=== PATIENT | female | born 1930 ===

== ENCOUNTER 2019-11-11 09:06 | Inpatient (IN) | payer MEDICARE, OTHER ==
--- NOTE | 2019-11-11 09:23 | CT ---
CT Brain WO Con History: Right-sided facial droop Comparison: None. Findings: No acute hemorrhage. No loss of pagan-white matter differentiation. The insular ribbons are maintained. The calvarium is intact. Paranasal sinuses and mastoids are clear. No midline shift or mass effect. Ventricular size and extra-axial CSF spaces are normal for age. Impression: No acute hemorrhage or significant territorial infarction.
[2019-11-11 09:37] LABS: #Eosinphils 0.2 thou/uL (0.0-0.7); #Lymphocytes 1.5 thou/uL (1.20-3.40); #Monocytes 0.8 thou/uL (0.11-0.59); %Basophils 0.1 % (0.0-1.0); %Eosinophils 2.2 % (0.0-10.0); %Lymphocytes 15.5 % (21.0-51.0); %Monocytes 8.5 % (0.0-10.0); %Neutrophils 73.7 % (42.0-75.0); Mean Corpuscular HGB CONC 33.5 g/dL (32.0-36.0); Mean Corpuscular Volume 92.7 fL (78.0-98.0); Mean Platelet Volume 7.6 fL (7.4-10.4); Platelet Count 213 thou/uL (130-400); RBC Distribution Width 11.6 % (11.5-14.5); White Blood Cell (WBC) Count 9.5 thou/uL (4.8-10.8)
[2019-11-11 09:48] LABS: INR-International Normal Ratio 1.1; PTT 26.9 sec (22.9-36.1); Prothrombin Time 13.7 sec (12.0-14.7)
--- NOTE | 2019-11-11 09:53 | CT ---
EXAM: CT ANGIOGRAM OF THE HEAD AND NECK INDICATION: Stroke COMPARISON: None TECHNIQUE: CT angiogram of the head and neck are performed in the axial plane. Three-dimensional refo rmatted images are submitted for interpretation. FINDINGS: CTA OF THE HEAD WITH AND WITHOUT CONTRAST: POSTCONTRAST CT OF BRAIN: Pathologic enhancement: No pathologic enhancement the brain. Postcontrast soft tissue neck CT: Aerodigestive tract:Aerodigestive tract is patent. No mucosal abnormality. Sinuses: Adequate aeration. Orbits: Bilateral ocular lens implants are appropriately located. Both globes are intact. Retrobulbar fat is preserved. Symmetric attenuation of the optic nerves and ocular rectus muscle Salivary glands:Appropriate attenuation. Thyroid gland: Appropriate attenuation Lymph nodes: No evidence of lymphadenopathy by size criteria. Paraspinal muscles: Symmetric attenuation of the sternocleidomastoid muscles. Appropriate attenuation of the paraspinal muscles. Cervical spine:Vertebral body height is maintained. No fracture. No significant central canal stenosi s or significant neural foraminal narrowing. Limited evaluation by technique. Upper mediastinum and lung apices: Multiple groundglass and solid nodules in the visualized lung pare nchyma. [employer] Management Aide nodules measure 0.3 to 0.5 cm. CTA OF THE NECK WITH CONTRAST: Aorta: Atherosclerosis. No aneurysm or dissection. Right carotid artery: Appropriate enhancement and luminal diameter of the origin of the right carotid artery, innominate artery, common carotid artery, carotid bifurcation and internal carotid artery. No evidence of significant stenosis based upon NASCET criteria Left carotid: Appropriate enhancement and luminal diameter of the origin of the left carotid artery, common carotid artery, carotid bifurcation and internal carotid artery. No evidence of significant stenosis based upon NASCET criteria. Subclavian arteries:Symmetric attenuation and enhancement Vertebral arteries:Dominant left vertebral artery. No significant stenosis in left vertebral artery. There is calcified plaque in the proximal right vertebral artery. Remainder of the right vertebral artery appears to be patent. CTA OF THE BRAIN: Intracranial internal carotid arteries:Atherosclerosis of both cavernous segments. No significant lum inal narrowing Anterior circulation: Symmetric enhancement and luminal diameter of the A1 segments, proximal A2 segm ents, M1 segments and proximal MCA branches. Intracranial vertebral arteries: Appropriate enhancement and luminal diameter. Limited evaluation of the left PICA artery origin. Posterior circulation: Appropriate enhancement and luminal diameter of the basilar artery and bilater al P1 segments. IMPRESSION: No hemodynamically significant stenosis, occlusion or aneurysmal formation. Results of study discussed with Dr. Dejesus 11/11/2019 9:51 AM Code CR Transcribed Date/Time: 11/11/2019 10:05 AM
[2019-11-11 09:57] LABS: ALT (SGPT) 12 U/L (8-55); AST (SGOT) 17 U/L (5-34); Albumin 3.5 g/dL (3.4-4.8); Alkaline Phosphatase 94 U/L (40-110); Anion Gap 10 mmol/L (10-20); BUN (Urea Nitrogen) 11 mg/dL (9.8-20.1); Bilirubin, Total 1.1 mg/dL (0.2-1.2); CK (CPK) 49 U/L (29-168); Calc. Creatinine Clearance 0 mL/min (70-130); Calcium 8.3 mg/dL (7.8-10.44); Carbon Dioxide 28 mmol/L (23-31); Chloride 99 mmol/L (98-107); Estimated GFR-MDRD 51; Globulin 2.6 g/dL (2.4-3.5); Glucose 376 mg/dL (83-110); Magnesium 1.7 mg/dL (1.6-2.6); Potassium 3.8 mmol/L (3.5-5.1); Protein, Total 6.1 g/dL (6.0-8.3); Sodium 133 mmol/L (136-145)
--- NOTE | 2019-11-11 10:05 | RAD ---
Exam: Chest one view HISTORY:Altered mental status Comparison: 10/27/2010 FINDINGS: Cardiac silhouette:Cardiomegaly. Aorta: Unremarkable Pulmonary vessels: Normal Costophrenic angles: Clear LUNGS: Chronic lung parenchymal changes. Superimposed interstitial edema or infiltrate cannot be excl uded. Pneumothorax: None Osseous abnormalities: None IMPRESSION: 1. Cardiomegaly 2. Superimposed edema or infiltrate is suspected on chronic lung parenchymal changes.
[2019-11-11] MEDS ORDERED: hydrALAZINE 20 MG/ML VIAL ONE (10:18)
[2019-11-11 10:21] LABS: CKMB 2.3 ng/mL (0-6.6)
[2019-11-11] MEDS ORDERED: Iopamidol-370 76% 500 ML 1 ML ONE (11:33)
[2019-11-11 11:37] LABS: Bilirubin Negative (Negative); Blood, Urine Negative (Negative); Clarity Clear (Clear); Glucose, Urine (Dipstick) 300 mg/dL (Negative); Ketone, Urine Negative (Negative); Leukocyte Negative Leu/uL (Negative); Nitrite Negative (Negative); Protein, Urine (Dipstick) Negative (Neg-Trace); Specific Gravity, Urine 1.022 (1.002-1.036); Urobilinogen Normal mg/dL (Less than 2)
[2019-11-11] MEDS ORDERED: Calcium Carbonate 500 MG ChewTAB PO PRN (12:56)
[2019-11-11] MEDS ORDERED: Acetaminophen 650 MG Suppository PR PRN (12:56)
[2019-11-11] MEDS ORDERED: Bisacodyl 10 MG SUPP PR PRN (12:56)
[2019-11-11] MEDS ORDERED: Guaifenesin DM 100-10/5 ML UDCUP PO PRN (12:56)
[2019-11-11] MEDS ORDERED: Ondansetron PF 4 MG/2 ML Vial IVP PRN (12:56)
[2019-11-11] MEDS ORDERED: Senokot S 8.6-50 MG TAB PO PRN (12:56)
[2019-11-11] MEDS ORDERED: hydrALAZINE 20 MG/ML VIAL SLOW IVP PRN (12:56)
[2019-11-11] MEDS ORDERED: Acetaminophen 325 MG TAB PO PRN (12:56)
[2019-11-11 13:09] LABS: Troponin I 0.041 ng/mL (< 0.028)
--- NOTE | 2019-11-11 14:53 | MRI ---
MRI BRAIN WITHOUT CONTRAST: HISTORY: Level 1 stroke, right-sided facial droop, right-sided arm and leg weakness CORRELATION: CT scan from same date FINDINGS: No restricted diffusion is seen. There are changes of cortical atrophy. There are multiple foci of T2 prolongation in the periventricular white matter, consistent with chronic small vessel ischemic disease. The ventricular size is appropriate and the basilar cisterns are patent. No evidence of acute infarct, hemorrhage, midline shift or abnormal extra-axial fluid collections is seen. The visualized paranasal sinuses and mastoid air cells are well-aerated. IMPRESSION: No evidence of acute intracranial process. Discussed over the telephone with ER physician Dr. Dejesus at 2:49 PM
[2019-11-11] MEDS ORDERED: Aspirin Chewable 81 MG TAB ONE ×2 (19:55→19:58)
[2019-11-11 20:32] VITALS: BMI 19.6
[2019-11-11] MEDS ORDERED: Dextrose 5% in Water 1,000 ML IV PRN (21:20)
[2019-11-11] MEDS ORDERED: Dextrose 50% Abboject 50 ML SYRINGE SLOW IVP PRN (21:20)
[2019-11-11] MEDS ORDERED: HumaLOG 300 UNITS/3 ML VIAL SC PRN (21:20)
[2019-11-11] MEDS: Atorvastatin Calcium 40 MG TAB PO SCH (22:19)
[2019-11-12 04:59] LABS: #Basophils 0.1 thou/uL (0.0-0.2); #Eosinphils 0.3 thou/uL (0.0-0.7); #Lymphocytes 1.9 thou/uL (1.20-3.40); #Monocytes 0.9 thou/uL (0.11-0.59); #Neutrophils 8.3 thou/uL (1.40-6.50); %Basophils 0.7 % (0.0-1.0); %Eosinophils 2.5 % (0.0-10.0); %Lymphocytes 16.3 % (21.0-51.0); %Monocytes 8.2 % (0.0-10.0); %Neutrophils 72.4 % (42.0-75.0); Hemoglobin 12.5 g/dL (12.0-16.0); Mean Corpuscular HGB CONC 33.1 g/dL (32.0-36.0); Mean Corpuscular Hemoglobin 30.3 pg (27.0-31.0); Mean Corpuscular Volume 91.4 fL (78.0-98.0); Mean Platelet Volume 7.7 fL (7.4-10.4); Platelet Count 222 thou/uL (130-400); RBC Distribution Width 11.6 % (11.5-14.5); Red Blood Cell (RBC) Count 4.12 mill/uL (4.20-5.40); White Blood Cell (WBC) Count 11.5 thou/uL (4.8-10.8)
[2019-11-12 05:19] LABS: Anion Gap 11 mmol/L (10-20); BUN (Urea Nitrogen) 9 mg/dL (9.8-20.1); Calc. Creatinine Clearance 45 mL/min (70-130); Calcium 8.8 mg/dL (7.8-10.44); Carbon Dioxide 27 mmol/L (23-31); Cardiac Risk 3.6 (Less than 4.5); Chloride 101 mmol/L (98-107); Cholesterol 121 mg/dl (< 200 Desired); Estimated GFR-MDRD 72; Glucose 182 mg/dL (83-110); HDL Cholesterol 34 mg/dL (>60 Neg Risk); LDL Cholesterol, Calculated 65 mg/dL; Potassium 4.3 mmol/L (3.5-5.1); Sodium 135 mmol/L (136-145); Triglycerides 111 mg/dL (Less than 150)
[2019-11-12] MEDS: HumaLOG 300 UNITS/3 ML VIAL SC PRN ×3 (06:30→18:27)
[2019-11-12] MEDS ORDERED: Enoxaparin Sodium 40 MG/0.4 ML SYRINGE SC SCH ×2 (09:00→14:45)
[2019-11-12] MEDS: Aspirin 325 mg Enteric Coated Tablet PO SCH (09:57)
[2019-11-12] MEDS ORDERED: Metoprolol Tartrate 50 MG TAB PO SCH (12:45)
--- NOTE | 2019-11-12 12:58 | HP ---
REASON FOR ADMISSION: Right hemiparesis. HISTORY OF PRESENTING ILLNESS: Please note majority of this history is obtained by talking to the patient's daughter, who is at bedside and the ER physician, Dr. Dejesus as the patient does not recollect exactly what happened. Per family, the patient's son went to check on her between 7:00 a.m. and 9:00 a.m. she would not wake up and was groggy. The son manages to sit her up and stand and later finds out that she is weak on the right upper extremity and lower extremity. She was not grasping on objects. He tried to feed her, but she was confused. Finally, EMS was summoned and the patient was brought to emergency room. On arrival, she has had a CT brain and CT angio of brain done, which does not reveal any acute abnormalities. Currently she is awake, but is not fully oriented. She does respond to questions. She easily gets agitated. PAST MEDICAL AND SURGICAL HISTORY: Hypertension, diabetes mellitus type 2, dyslipidemia, and open cholecystectomy. CURRENT MEDICATIONS: The patient or the daughter does not recall medications. They will try to bring her home medications soon. PERSONAL HISTORY: Does not abuse alcohol or drugs. No history of smoking. ALLERGIES: NO KNOWN DRUG ALLERGIES. FAMILY HISTORY: Mother when she was 9 years old. Father at the age of 92 from natural causes as far as she knows. CODE STATUS: Full. POWER OF CLIPPER MACHINE: Two children. REVIEW OF SYSTEMS: CONSTITUTIONAL: Negative for weight loss or gain, ability to conduct usual activities. SKIN: Negative for rash, itching. EYES: Negative for double vision, pain. ENT/MOUTH: Negative for nose bleeding, neck stiffness, pain, tenderness. CARDIOVASCULAR: Negative for palpitations, dyspnea on exertion, orthopnea. RESPIRATORY: Negative for shortness of breath, wheezing, cough, hemoptysis, fever or night sweats. GASTROINTESTINAL: Negative for poor appetite, abdominal pain, heartburn, nausea , vomiting, constipation, or diarrhea. GENITOURINARY: Negative for urgency, frequency, dysuria, nocturia. MUSCULOSKELETAL: Negative for pain, swelling. NEUROLOGIC/PSYCHIATRIC: Negative for anxiety, depression. ALLERGY/IMMUNOLOGIC: Negative for skin rash, bleeding tendency. PHYSICAL EXAMINATION: GENERAL: The patient is an 89-year-old female, who is currently not in any acute distress. VITAL SIGNS: Blood pressure 146/74, pulse rate 80 per minute, respiratory rate 20 per minute, temperature 98 degrees Fahrenheit, and saturating 98% on room air. NECK: Supple. No elevated JVD. HEENT: Eyes; extraocular muscles are intact. Pupils are reacting to light. Oral cavity, mucous membranes are dry. No exudates or congestion. CARDIOVASCULAR: S1 and S2 heard. Loud S2. No murmur. RESPIRATORY SYSTEM: Air entry, 1+ bilateral. No rales or rhonchi. ABDOMEN: Soft. Bowel sounds are heard. No tenderness, rigidity, or guarding. EXTREMITIES: No peripheral edema or calf tenderness. VASCULAR SYSTEM: Peripheral pulses 1+ bilateral. No ischemic ulcerations or gangrene. CENTRAL NERVOUS SYSTEM: Cranial nerves are grossly intact. The patient is awake, but not oriented. She knows her name and she knows her daughter, who is by her bedside, but does not recollect what happened this morning. Motor system strength is 2/5 to 3/5 in right upper and lower extremity. Babinski is equivocal. Reflexes are 2+ on the left upper and lower extremity. Gait was not tested. Cerebellar signs could not be elicited as the patient is not cooperative. PSYCHIATRIC SYSTEM: No obvious hallucinations or delusions. LABORATORY DATA: White count of 9, hemoglobin and H 13 and 38, platelet count 21, MCV is 92 with 73% neutrophils. PT/INR, PTT within normal limits. BUN 11, creatinine 1.0. Serum bicarb is 28. Serum sugar 376. LFTs are within normal limits. Troponin I 0.03. CK-MB 2.3. Albumin is 3.5. UA shows no evidence of UTI. COVID-19 test has been ordered and is pending. CT brain shows no acute hemorrhage or significant territorial infarct. CT angio of head and neck done shows no hemodynamically significant stenosis or occlusion or aneurysm formation. CLINICAL IMPRESSION AND PLAN: The patient will be admitted to Stroke Unit for acute CVA with right hemiparesis. She has uncontrolled diabetes. The patient's initial workup including CT brain and CT angio brain does not reveal any acute infarct or significant stenosis or thrombus. The family says she has not been exposed to COVID. We will await the results of the COVID-[address] her on full-dose aspirin, Lipitor, and Humalog coverage for now. We will await home medication list to be updated. Please note, I have been informed that the patient will be transferred to [facility] due to her [facility] Medicaid insurance by emergency room here and the transfer center. I have given complete updates to Dr. Kisha Bunch, hospitalist at [facility]. Patient has been accepted and will be shortly transferred from the emergency room. We will follow stroke evidence based protocol if she remains in the hospital. Job ID: [id number] MTDD
[2019-11-12] MEDS ORDERED: Hydrochlorothiazide 25 MG TAB PO SCH (13:00)
[2019-11-12] MEDS ORDERED: Amlodipine 10 MG TAB PO SCH (13:00)
[2019-11-12] MEDS ORDERED: Losartan 25 MG TAB PO SCH (13:00)
[2019-11-12] MEDS ORDERED: Diltiazem 125 MG in Sodium Chloride 0.9% 100 ML IVPB SCH (13:30)
--- NOTE | 2019-11-12 13:37 | PDOC.HOSPP ---
- Subjective Encounter Date: 11/12/19 Subjective: Patient reports she feels fine. She feels like all of her symptoms have completely resolved and she is back to her normal baseline. - Objective Vital Signs & Weight: Vital Signs (12 hours) Temp Pulse Pulse Pulse Resp BP BP 11/12/19 12:59 153 H 11/12/19 11:43 98.4 F 70 16 11/12/19 10:16 94 116 H 183/83 H 210/91 H 11/12/19 08:00 97.8 F 99 14 11/12/19 04:00 98.0 F 85 20 BP Pulse Ox 11/12/19 12:59 11/12/19 11:43 180/78 H 95 11/12/19 10:16 11/12/19 08:00 204/79 H 99 11/12/19 04:00 218/90 H 94 L Weight Weight 121 lb 11.2 oz I&O: 11/11/19 11/12/19 11/13/19 06:59 06:59 06:59 Intake Total 120 Balance 120 Result Diagrams: 11/12/19 04:40 11/12/19 04:40 Additional Labs: Accuchecks 11/12/19 11/12/19 11/11/19 11:42 05:36 21:03 POC Glucose 229 H 186 H 326 H Hospitalist ROS - Medication Medications: Active Medications Generic Name Dose Route Start Last Admin Trade Name Yessy PRN Reason Stop Dose Admin Amlodipine Besylate 10 mg 11/12/19 13:00 11/12/19 12:59 Norvasc PO 11/12/19 15:00 10 mg NOW SHRUTI Administration Aspirin 325 mg 11/12/19 09:00 11/12/19 09:57 Ecotrin PO 325 mg DAILY SHRUTI Administration Atorvastatin Calcium 40 mg 11/11/19 21:00 11/11/19 22:19 Lipitor PO 40 mg HS SHRUTI Administration Enoxaparin Sodium 40 mg 11/12/19 09:00 11/12/19 09:57 Lovenox SC 40 mg 0900 SHRUTI Administration Glipizide 10 mg 11/12/19 13:00 11/12/19 12:57 Glucotrol Xl PO 11/12/19 15:00 10 mg NOW SHRUTI Administration Hydrochlorothiazide 12.5 mg 11/12/19 13:00 11/12/19 12:57 Hydrochlorothiazide PO 11/12/19 15:00 12.5 mg NOW SHRUTI Administration Insulin Human Lispro 0 units 11/11/19 21:20 11/11/19 23:23 Humalog SC 4 unit .BEDTIME SLIDING SC PRN Administration Bedtime Correctional Scale Insulin Human Lispro 0 units 11/11/19 21:20 11/12/19 06:30 Humalog SC 2 unit .MILD SLIDING SCALE PRN Administration Mild Correctional Scale Losartan Potassium 100 mg 11/12/19 13:00 11/12/19 12:59 Cozaar PO 11/12/19 15:00 100 mg NOW SHRUTI Administration Metoprolol Tartrate 50 mg 11/12/19 12:45 11/12/19 12:59 Lopressor PO 11/12/19 14:45 50 mg NOW SHRUTI Administration Sodium Chloride 10 ml 11/11/19 12:56 11/12/19 09:59 Flush - Normal Saline IVF 10 ml PRN PRN Administration Saline Flush - Exam General Appearance: NAD, awake alert Heart: irregular (Tachycardic) Respiratory: CTAB, no wheezes, no rales, no ronchi, normal chest expansion, no tachypnea, normal percussion Gastrointestinal: soft, non-tender, non-distended, normal bowel sounds, no palpable masses, no hepatomegaly, no splenomegaly, no bruit Extremities: no cyanosis, no clubbing, no edema Neurological: no new deficit Musculoskeletal: normal tone, normal strength, no muscle wasting Psychiatric: normal affect, normal behavior, A&O x 3 Hosp A/P (1) Atrial fibrillation with rapid ventricular response Code(s): I48.91 - UNSPECIFIED ATRIAL FIBRILLATION Status: Acute (2) TIA (transient ischemic attack) Code(s): G45.9 - TRANSIENT CEREBRAL ISCHEMIC ATTACK, UNSPECIFIED Status: Acute (3) Hypertension Code(s): I10 - ESSENTIAL (PRIMARY) HYPERTENSION Status: Acute (4) Diabetes mellitus Code(s): E11.9 - TYPE 2 DIABETES MELLITUS WITHOUT COMPLICATIONS Status: Acute (5) Hyperlipidemia Code(s): E78.5 - HYPERLIPIDEMIA, UNSPECIFIED Status: Acute - Plan Atrial fibrillation with rapid ventricular response: The expectation was the patient was to be transferred to [facility] last evening. However that did not happen apparently because of the bed situation. Patient did not have her usual morning medications ordered timely this morning. She has subsequently developed some high blood pressure and now developed atrial fibrillation with rapid ventricular response. Unclear if these are related. Started the patient on diltiazem drip without a load. She is just received her usual daily medications including metoprolol. She appears quite stable and asymptomatic otherwise. Patient received prophylactic dose of Lovenox this morning at 40 mg. At this point I will give her an additional 40 to cover for the atrial fibrillation. Obtain echocardiogram. Cardiology consult. Patient denies ever having had A. fib previously. TIA: Unclear at this point if the patient might of had some symptomatic atrial fibrillation at home or if she has had this atrial fibrillation at any time in the past potentially increasing the risk of TIA or stroke. Her MRI was negative for acute stroke. Currently she is entirely asymptomatic. Her blood pressure was and is fairly high. It is possible she had some hypertensive encephalopathy. Hypertension: Resumed her usual daily home medications. Will continue to monitor closely and provide PRN's if needed. Diabetes mellitus: Reasonably well controlled. Resumed home medications. Continue Accu-Cheks. Hyperlipidemia: Continue statin.
--- NOTE | 2019-11-12 14:29 | CON ---
DATE OF CONSULTATION: 11/12/2019 REASON FOR CONSULTATION: Atrial fibrillation. HISTORY OF PRESENT ILLNESS: Ms. Madden is a very pleasant 89-year-old female, who comes to the hospital for stroke like symptoms. She had slurred speech and had reduced strength in the right upper and lower extremity. She came in, had a full evaluation with CAT scans and MRI of the brain and she had no acute abnormality. Her symptoms resolved within less than 24 hours and is back to normal. This morning, her blood pressure was very high in the 200s. She was given all her blood pressure medication that she normally takes and her heart went into atrial fibrillation with rapid ventricular response. Heart rate in the 150s, so Cardiology has been consulted for this. PAST MEDICAL HISTORY: 1. Hypertension. 2. Type 2 diabetes. 3. Hyperlipidemia. PAST SURGICAL HISTORY: Cholecystectomy. OUTPATIENT MEDICATIONS: 1. Olmesartan 40 mg a day. 2. Felodipine 10 mg a day. 3. Hydrochlorothiazide 12.5 mg a day. 4. Gabapentin 100 mg at bedtime. 5. Famotidine 40 mg a day. 6. Glipizide 10 mg a day. 7. Clonidine 0.3 b.i.d. 8. Furosemide 20 mg a day. 9. Aspirin 81 a day. 10. Atorvastatin 20 mg at bedtime. ALLERGIES: NO KNOWN DRUG ALLERGIES. FAMILY HISTORY: Noncontributory. SOCIAL HISTORY: No alcohol, tobacco, or drugs. REVIEW OF SYSTEMS: A 12-point review of systems was done and was found to be negative other than stated in the history of present illness. PHYSICAL EXAMINATION: VITAL SIGNS: Temperature 98.4, pulse 153, respiratory rate 16, sat 95% on room air, blood pressure 180/78. GENERAL: Awake, alert, oriented x3. No distress. HEENT: Normocephalic and atraumatic. NECK: Supple. No JVD. LUNGS: Clear. CARDIOVASCULAR: S1 and S2. No S3 or S4. Tachycardia, irregular in the 130s to 150s. No murmurs. ABDOMEN: Soft. Positive bowel sounds. EXTREMITIES: No edema. SKIN: Warm and dry. LABORATORY DATA: Laboratory work was reviewed. White count of 11.5, hemoglobin of 12.5, hematocrit of 37, platelet count of 222. Coags were normal. Chemistries were unremarkable. Normal potassium. Troponin was in the indeterminate range of 0.03 and 0.04, this was since yesterday. UA was normal. MRI of the brain was unremarkable. CT of the brain and CT angio of the brain were unremarkable. ASSESSMENT: 1. New onset atrial fibrillation with rapid ventricular response. 2. Transient ischemic attack. 3. Hypertension. 4. Diabetes. 5. CHADS-VASc score of 7, two points for age, two points for TIA, one point for female, one point for diabetes, one point for hypertension, total of 7. PLAN: 1. Full anticoagulation for stroke prophylaxis as she is high risk for stroke with her atrial fibrillation. 2. We will try to rate control her first. I agree with starting her on metoprolol and agree with starting her on a diltiazem drip. We will up titrate to effect, but if we are unable to rate control her or her atrial fibrillation does not break, we will plan on possibly doing MEGHAN cardioversion in the next few days. Ideally having had recent stroke, I would want to stay away from a cardioversion. I would probably prefer doing rate control rather than rhythm control at this time. Thank you for letting us participate in the care of this patient. We will follow. Job ID: [id number]
--- NOTE | 2019-11-12 14:36 | CON ---
DATE OF CONSULTATION: 11/12/2019 CONSULTING PHYSICIAN: Hospitalist Services. IMPRESSION: 1. Transient ischemic attack with transient right upper extremity weakness and slurred speech. 2. Hypertension. 3. Aspirin failure. PLAN: 1. Add Plavix 75 mg per day. 2. Echocardiogram. 3. The patient will be discharged home this evening. HISTORY OF PRESENT ILLNESS: Ms. Madden is an 89-year-old female, who noted that when she tried to get up from the couch, her right arm was limp. She also felt like her throat felt funny as well. She cannot really say how long the episode lasted. She was brought to the emergency room for evaluation. She had a CT and CT angiogram done, which did not show any significant findings. She has had an MRI since admission which failed to reveal any evidence of an ischemic event. She has been a bit hypertensive since admission, but otherwise has been stable. PAST MEDICAL HISTORY: Hypertension. ALLERGIES: NONE. SOCIAL HISTORY: No tobacco or alcohol. FAMILY HISTORY: Noncontributory. REVIEW OF SYSTEMS: Ten-system review of systems is otherwise negative. MEDICATION: Medication list was reviewed. PHYSICAL EXAMINATION: VITAL SIGNS: Blood pressure 204/79, pulse 99, respirations 14, and temperature 97.8. HEENT: Pupils are equal. Conjunctivae clear. Oropharynx clear. NECK: Supple. No lymphadenopathy. ABDOMEN: Soft and nontender. EXTREMITIES: No cyanosis, clubbing, or edema. SKIN: No evidence of rash. NEUROLOGIC: She is alert and appropriate. Her speech is fluent and clear. She has no focal deficits. She walks with the use of a cane. No abnormal movements were seen. LABORATORY STUDIES: Unremarkable. CBC, coag studies, and chemistry other than elevated glucose of over 300. Her cholesterol ratio is 3.6. Her urine was clear. SUMMARY: This elderly lady, who appears to have diabetes, that is newly discovered. Her blood pressures were a bit high. She had been on aspirin prior to admission, therefore I would add Plavix. I would be happy to follow up with her as an outpatient. Job ID: [id number]
[2019-11-12] MEDS ORDERED: cloNIDine 0.3 MG TAB PO SCH ×2 (14:45→21:00)
[2019-11-12 15:33] LABS: SARS-CoV-2 MS2 Positive; SARS-CoV-2 N Gene Negative; SARS-CoV-2 S Gene Negative; SARS-CoV-2 by NAA Not Detected (NotDetected); SARS-CoV-2 orf1ab Negative
[2019-11-12] MEDS ORDERED: Sodium Chloride 0.9% 500 ML IV SCH ×2 (19:45)
--- NOTE | 2019-11-12 20:38 | PDOC.EVN ---
Event Note - Event Note Event Note: Patient HR dropped to the 40's; BP down to SBP 86, patient is asymptomatic, talking to her family on the phone. NS 500ml bolus ordered and Dr. Villagomez was made aware of change to vital signs.
[2019-11-12] MEDS ORDERED: Gabapentin 100 MG CAP PO SCH (21:00)
[2019-11-12] MEDS: Metoprolol Tartrate 50 MG TAB PO SCH (21:10)
[2019-11-12] MEDS: cloNIDine 0.3 MG TAB PO SCH (21:11)
[2019-11-12] MEDS: Atorvastatin Calcium 40 MG TAB PO SCH (21:14)
[2019-11-12] MEDS: Apixaban 2.5 MG TAB PO SCH (21:14)
[2019-11-13] MEDS ORDERED: Atorvastatin Calcium 20 MG TAB PO SCH (09:00)
[2019-11-13] MEDS ORDERED: Losartan 25 MG TAB PO SCH (09:00)
[2019-11-13] MEDS ORDERED: Furosemide 20 MG TAB PO SCH (09:00)
[2019-11-13] MEDS ORDERED: Hydrochlorothiazide 25 MG TAB PO SCH (09:00)
[2019-11-13] MEDS ORDERED: Amlodipine 10 MG TAB PO SCH (09:00)
[2019-11-13] MEDS: Aspirin 325 mg Enteric Coated Tablet PO SCH (09:17)
[2019-11-13] MEDS: cloNIDine 0.3 MG TAB PO SCH (09:21)
[2019-11-13] MEDS: Metoprolol Tartrate 50 MG TAB PO SCH (09:26)
[2019-11-13] MEDS: Apixaban 2.5 MG TAB PO SCH (09:27)
[2019-11-13] MEDS ORDERED: Metoprolol Tartrate 25 MG TAB PO SCH (09:30)
[2019-11-13 11:04] VITALS: BP 99/49; TEMP 97.5
--- NOTE | 2019-11-13 16:41 | DIS ---
DATE OF ADMISSION: 11/11/2019 DATE OF DISCHARGE: 11/13/2019 DISCHARGE DIAGNOSES: 1. Transient ischemic attack with right-sided upper extremity weakness and slurred speech. 2. Hypertension. 3. Atrial fibrillation with rapid ventricular response. 4. Tachy-luis syndrome. 5. Isolated hypotensive episode. 6. Hyperlipidemia. 7. Diabetes mellitus. HISTORY OF PRESENT ILLNESS: The patient is an 89-year-old female who was found by family to be awakened with some right upper extremity weakness and some slurred speech. She was brought to the hospital and the symptoms had largely recovered by the time she had completed her evaluation in the emergency department. At that time, she had a brain CT showing nothing acute. Had a CT angio of the head and neck showing no significant occlusive disease. Chest x-ray was unremarkable. HOSPITAL COURSE: The patient was initially admitted to this facility before leaving the emergency room. However, the plan had changed to get the patient to [facility] as she has [employer] insurance. Apparently due to lack of beds, the patient did not go as anticipated and was subsequently placed on the stroke floor. The following morning, the patient continued to feel well, but her blood pressure was high. She had not received her morning medications as of yet as the patient had intended to be transferred. As her daily medicines were being ordered for the day, she went into atrial fibrillation with a rapid ventricular response in the 150s. She had a diltiazem drip ordered and a Cardiology consult. She had metoprolol 50 mg ordered and subsequently was given a dose of oral diltiazem. She never actually had the diltiazem drip initiated as she subsequently fairly promptly converted back to normal sinus rhythm. The patient's blood pressure continued to run a bit high. The plan was to continue to monitor the patient's blood pressure. The patient's family again requested transfer to [facility] if possible. Those plans were again made and again a doc to doc phone call occurred. However, immediately thereafter, the patient's blood pressure dropped into the upper 70s and she was having some bradycardia throughout her atrial fibrillation with RVR and her hypotension and bradycardia, she remained generally asymptomatic. She subsequently received some fluids and her blood pressure rebounded nicely. The following morning, the patient was prepared for discharge clarified her home medications did not include any type of chronotropes. Therefore, her new medications were only including metoprolol 25 mg and no additional calcium channel blockers. The patient was very eager to go home, but her blood pressure on recheck at that time was 200 systolic. However, it was clear that the patient was not appropriately relaxing her arm and when she was repositioned appropriately and I was able to get her to relax her arm a bit, her systolic was 170s. With that, she was felt to be stable for discharge again. However, she again developed some bradycardia, so I reached out again to Dr. Villagomez, the grinding and spraying supervisor. He felt like it was likely some tachy-luis syndrome and the patient may benefit from a pacemaker placement. He reviewed her strips. He had a long conversation with the patient and her family and ultimately the decision was to go ahead and discharge the patient with no chronotropic medications and reducing her antihypertensives. She would, however, remain on Eliquis and the patient could then follow up at [facility] where her grinding and spraying supervisor is. Of note, the patient was also seen initially by Neurology, who felt the patient likely had a TIA. The plan was to keep her on aspirin and add Plavix. However, once the patient had the episode of atrial fibrillation, I discussed the case with the neurologist again and he was comfortable with her simply being on the aspirin and Eliquis. PHYSICAL EXAMINATION: VITAL SIGNS: On the day of discharge, temperature is 97.5, pulse ranged from 42 to 61, respirations 16, O2 saturation 98% on room air, BP ranged from 99/49 to 179/ 75. GENERAL: The patient was awake and alert. Denied any symptoms. HEART: Regular. LUNGS: Clear. ABDOMEN: Benign. DISPOSITION: ACTIVITY: As tolerated. DIET: She will be on a diabetic heart healthy diet. DISCHARGE MEDICATIONS: She will be on 1. Eliquis 2.5 mg b.i.d. 2. Atorvastatin 40 mg at bedtime. 3. Clonidine 0.1 mg b.i.d. 4. Benicar 20 mg daily. 5. Felodipine 10 mg daily. 6. HCTZ 12.5 daily. 7. Gabapentin 100 mg at bedtime. 8. Famotidine 40 mg daily. 9. Glipizide XL 10 mg daily. 10. Lasix 20 mg daily. 11. Aspirin 81 mg daily. Follow up: She is to follow up with her PCP and grinding and spraying supervisor at [facility]. She can follow up with Dr. Awad and she can return to this facility anytime she has the need to do so. The patient is discharged to home in the care of her adult children. The patient is to follow up with her PCP at [facility]. The patient will need an echocardiogram performed to complete the workup of the TIA and the bradycardia and atrial fibrillation. TIME SPENT: Total time in discharge planning activities is greater than 30 minutes. Job ID: [id number] MTDD
--- NOTE | 2019-11-13 18:11 | PDOC.CPN ---
- Subjective Date: 11/13/19 Time: 13:30 Interval history: She became hypotensive and bradycardic this morning after morning meds. She feels much better at the time of my evaluation. - Review of Systems General: denies: fever/chills, weight/appetite/sleep changes, night sweats, fatigue Respiratory: denies: cough, congestion, shortness of breath, exercise intolerance Cardiovascular: denies: chest pain, palpitation, edema, paroxysmal nocturnal dyspnea, orthopnea Gastrointestinal: denies: nausea, vomiting, diarrhea, constipation, abd pain, GI bleeding Musculoskeletal: denies: pain, tenderness, stiffness, swelling, arthritis/ arthralgias Neurological: denies: numbness, syncope, seizure, weakness - Objective Allergies/Adverse Reactions: Allergies Allergy/AdvReac Type Severity Reaction Status Date / Time No Known Allergies Allergy Unverified 11/11/19 12:59 Vital Signs & Weight: Vital Signs Temp Pulse Pulse Pulse Resp BP BP 11/13/19 11:01 97.5 F L 42 L 16 11/13/19 09:59 51 L 56 L 106/53 L 11/13/19 09:21 179/75 H 11/13/19 09:19 61 11/13/19 07:14 98.1 F 59 L 21 H BP BP Pulse Ox 11/13/19 11:01 99/49 L 98 11/13/19 09:59 157/70 H 11/13/19 09:21 11/13/19 09:19 11/13/19 07:14 169/77 H 96 Weight 121 lb 11.2 oz - Physical Exam General: no apparent distress HEENT: mucus membranes moist Neck: supple neck Cardiac: regular rate and rhythm Lungs: clear to auscultation Neuro: grossly intact Abdomen: active bowel sounds Extremities: no edema Skin: clear Musculoskeletal: no pain - Labs Result Diagrams: 11/12/19 04:40 11/12/19 04:40 Troponin/CKMB CK-MB (CK-2) 2.3 ng/mL (0-6.6) 11/11/19 09:20 Troponin I 0.041 ng/mL (< 0.028) H 11/11/19 12:33 - Telemetry Sinus rhythms and dysrhythmias: sinus bradycardia (< 50 bpm) - Assessment/Plan Assessment/Plan: 1. Paroxysmal afib 2. TIA 3. CHADS VASc score of 7, Age(2), female(1), TIA(2), HTN(1), DMT2(1). 4. HTN 5. Aortic valve stenosis. Mild . PLAN; - Her and her family are very adamant about being discharged today. - Will adjust her medications to let her run on the high side for her BP - High risk for repeat CV event, continue ELiquis 2.5 mg BID - She will use clonidine at 0.1 BID and will use PRN at same dose for SBP > 180 - Daughter states she will call [employer] Dr. Kingston tomorrow Thursday and will try to get in as soon as possible.
[2019-11-13] MEDS ORDERED: cloNIDine 0.1 MG TAB PO SCH (21:00)
[2019-11-14] MEDS ORDERED: Aspirin 81 mg Enteric Coated Tablet PO SCH (09:00)
[2019-11-14] MEDS ORDERED: Losartan 25 MG TAB PO SCH (09:00)
== END 2019-11-13 13:32 | disposition short-term general hospital (02) | DRG 69 ==
LOC: ERS 09:06 → ERHOLD 10:47 → 2SE 20:28
PROVIDERS: ADMIT Internal Medicine; ATTEND Internal Medicine
DX: G45.9 Transient cerebral ischemic attack, unspecified (principal); G81.91 Hemiplegia, unspecified affecting right dominant side; I95.9 Hypotension, unspecified; I48.0 Paroxysmal atrial fibrillation; I10 Essential (primary) hypertension; R47.81 Slurred speech; I49.5 Sick sinus syndrome; E11.65 Type 2 diabetes mellitus with hyperglycemia; Z20.828 Contact with and (suspected) exposure to other viral communicable diseases; Z90.49 Acquired absence of other specified parts of digestive tract; Z79.899 Other long term (current) drug therapy; Z79.82 Long term (current) use of aspirin; Z79.84 Long term (current) use of oral hypoglycemic drugs
CPT/HCPCS: 36415; 36416; 70450; 70496; 70498; 70551; 71045; 80048; 80053; 80061; 81003; 82550; 82553; 83605; 83735; 84484; 85025; 85610; 85730; 87635; 93005; 93010; 93306; J0360; J1650; J2997; Q9967; U0003